=== PATIENT | female | born 1990 ===

== ENCOUNTER 2017-03-13 12:41 | Emergency (ER) | payer OTHER ==
[2017-03-13 12:41] VITALS: BMI 22.2
[2017-03-13 12:58] VITALS: BP 115/82; PULSE 78; RESP 19; TEMP 98.6; O2SAT 100
--- NOTE | 2017-03-13 13:16 | ED PDOC ---
Arrival/HPI <Zaki Sagastume - Last Filed: 03/13/17 14:31> <ViktoriaVictorino - Last Filed: 03/13/17 14:37> - General Chief Complaint: Back Pain Time Seen by Provider: 03/13/17 12:49 - History of Present Illness Narrative History of Present Illness (Text): 03/13/17 13:13 This patient is a 27yo F w/ no PMhx, previous 2 C-Sections, who is coming into the hospital for intense cervical and lumbar back pain. 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 States she has taken nothing for the pain. States the pain shoots down both of her arms from her neck , and she is unable to flex her neck down without extreme pain. Pain also shoots down lumbar spine bilaterally to the knees, not to the feet. Is able to ambulate and carry out daily activities (ie job) but with significant discomfort. She denies any saddle parasthesia, loss of control of bladder/ bowels. She denies fevers/chills, GARCIA, CP, SOB, abdominal pain, n/V/D, dysuria/ freq/urg, or lower extremity swelling. PMD: Dr. Marisela Rosales Allergies: PCN Surgeries: C-Sections FamHx: Denies Meds: Denies Social: working, denies EtOH, current smoking (former smoker), or illicit drug use (Zaki Sagastume) Past Medical History - Provider Review Nursing Documentation Reviewed: Yes - Travel History Have you recently traveled outside [place] w/in the past 3 mons?: No - Past History Past History: No Previous - Infectious Disease Hx of Infectious Diseases: None - Tetanus Immunization Tetanus Immunization: Unknown - Cardiac Hx Cardiac Disorders: No - Pulmonary Hx Respiratory Disorders: No - Neurological Hx Neurological Disorder: No - HEENT Hx HEENT Disorder: No - Renal Hx Renal Disorder: No - Endocrine/Metabolic Hx Endocrine Disorders: No - Hematological/Oncological Hx Blood Disorders: No - Integumentary Hx Dermatological Disorder: No - Musculoskeletal/Rheumatological Hx Musculoskeletal Disorders: Yes Hx Back Pain: Yes Other/Comment: b/l KNEE PAIN - Gastrointestinal Hx Gastrointestinal Disorders: Yes Hx Gastroesophageal Reflux: Yes - Genitourinary/Gynecological Hx Genitourinary Disorders: No - Psychiatric Hx Psychophysiologic Disorder: No Hx Substance Use: No - Surgical History Hx Appendectomy: Yes - Anesthesia Hx Anesthesia: Yes Hx Anesthesia Reactions: No Hx Malignant Hyperthermia: No - Suicidal Assessment Feels Threatened In Home Enviroment: No <ErnestoNanetteoswaldoZaki - Last Filed: 03/13/17 14:31> Family/Social History - Physician Review Nursing Documentation Reviewed: Yes Family/Social History: No Known Family HX Smoking Status: Current Some Days Smoker Hx Alcohol Use: Yes Frequency of alcohol use: Socially Hx Substance Use: No <Zaki Sagastume - Last Filed: 03/13/17 14:31> Allergies/Home Meds <Zaki Sagastume - Last Filed: 03/13/17 14:31> <Victorino Blum - Last Filed: 03/13/17 14:37> Allergies/Adverse Reactions: Allergies Penicillins Allergy (Verified 03/13/17 12:53) ANAPHYLAXIS Review of Systems - Review of Systems Constitutional: absent: Fatigue, Weight Change Eyes: absent: Vision Changes, Photophobia ENT: absent: Hearing Changes Respiratory: absent: SOB, Cough Cardiovascular: absent: Chest Pain Gastrointestinal: absent: Abdominal Pain, Stool Changes, Constipation, Diarrhea , Nausea, Vomiting, Appetite Changes, Hematochezia Genitourinary Female: absent: Dysuria, Frequency, Hematuria Musculoskeletal: Back Pain, Neck Pain. absent: Joint Swelling, Myalgias Skin: absent: Rash, Pruritis Neurological: absent: Headache, Dizziness Endocrine: absent: Diaphoresis, Polyuria Hemo/Lymphatic: absent: Adenopathy Psychiatric: absent: Anxiety, Depression <Zaki Sagastume - Last Filed: 03/13/17 14:31> Physical Exam Temperature: Afebrile Blood Pressure: Normal Pulse: Regular Respiratory Rate: Normal Appearance: Positive for: Well-Appearing Pain Distress: Mild Mental Status: Positive for: Alert and Oriented X 3 - Systems Exam Head: Present: Atraumatic, Normocephalic Pupils: Present: PERRL Extroacular Muscles: Present: EOMI Conjunctiva: Present: Normal Mouth: Present: Moist Mucous Membranes Neck: Present: Normal Range of Motion, Other (ROM in cervical spine decreased, Spurling + b/l on both sides, intact muscle strength). No: Meningeal Signs Respiratory/Chest: Present: Clear to Auscultation, Good Air Exchange. No: Respiratory Distress Cardiovascular: Present: Regular Rate and Rhythm, Normal S1, S2. No: Murmurs Abdomen: Present: Normal Bowel Sounds. No: Tenderness, Distention Upper Extremity: Present: Normal Inspection, NORMAL PULSES. No: Cyanosis, Edema , Normal ROM (ROM decreased due to pain, intact muscle strength b/l on both sides, good warehouse person strength, intact AIN and PIN), Tenderness, Swelling Neurological: Present: GCS=15, CN II-XII Intact, Speech Normal, Gait Normal Skin: Present: Warm Psychiatric: Present: Alert, Oriented x 3 <Zaki Sagastume - Last Filed: 03/13/17 14:31> Vital Signs Reviewed: Yes <Victorino Blum - Last Filed: 03/13/17 14:37> Vital Signs Temp Pulse Resp BP Pulse Ox 03/13/17 12:56 98.6 F 78 19 115/82 100 Medical Decision Making <Zaki Sagastume - Last Filed: 03/13/17 14:31> <Victorino Blum - Last Filed: 03/13/17 14:37> ED Course and Treatment: 03/13/17 13:18 Preg test done in ER; negative Ordered Cervical, Thoracic and Lumbar X-Rays; no previous imaging on file and has been here for back pain in the past requesting pill instead of toradol; giving 10mg Baclofen and 800mg of Ibuprofen Disposition and reassess 03/13/17 14:15 X-Rays show no signs of fracture, good disc space, lumbar and cervical spine show mild scoliosis, cervical spine flattening consistent with muscle spasm The patient is stable for discharge Dr. Irvin Santiago physiatry; patient given this doctors information for follow up Naproxen 500mg BID, Baclofen 10mg TID, and Tramadol 50mg BID number 10; told to only take tramadol if pain is completely unbearable case discussed with Dr. Blum 03/13/17 14:33 (Zaki Sagastume) 03/13/17 14:36 Patient seen and examined. X-ray as noted are unremarkable. Will d/c on meds as noted. 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 / has examined the patient and agrees with the treatment plan. <Victorino Blum - Last Filed: 03/13/17 14:37> Disposition/Present on Arrival - Present on Arrival Any Indicators Present on Arrival: No History of DVT/PE: No History of Uncontrolled Diabetes: No Urinary Catheter: No History of Decub. Ulcer: No History Surgical Site Infection Following: None - Disposition Have Diagnosis and Disposition been Completed?: Yes Disposition Time: 14:19 Patient Plan: Discharge <Zaki Sagastume - Last Filed: 03/13/17 14:31> <Victorino Blum - Last Filed: 03/13/17 14:37> - Disposition Diagnosis: Muscle spasm Disposition: HOME/ ROUTINE Patient Problems: Current Active Problems Problem Status Onset Muscle spasm Acute Condition: FAIR Additional Instructions: Take the naprosyn and baclofen as prescribed and tramadol if pain is severe and uncontrolled. Follow up with physiatry. Return to the emergency department if any new concerning symptoms. Prescriptions: Baclofen [Lioresal] 10 mg PO TID PRN #30 tab PRN Reason: Muscle Spasm Naproxen 500 mg PO BID PRN #30 tab PRN Reason: Pain, Mild (1-3) traMADol [Ultram] 50 mg PO BID PRN #10 tab PRN Reason: Pain, Moderate (4-7) Referrals: Marisela Rosales MD [Primary Care Provider] - Follow up with primary Job Santiago MD [Staff Provider] - Follow up with primary
--- NOTE | 2017-03-13 14:28 | RAD ---
PROCEDURE: Radiographs of the Lumbar Spine. HISTORY: back pain COMPARISON: No prior. FINDINGS: BONES: Rightward lumbar convexity. No listhesis. No fracture. DISC SPACES: Unremarkable. OTHER FINDINGS: The pelvic surgical clips. Left hemipelvic 2 mm phleboliths. Extensive stool retention IMPRESSION: No fracture or subluxation. Rightward lumbar convexity position on an or scoliosis. Extensive stool retention-.
--- NOTE | 2017-03-13 14:29 | RAD ---
HISTORY: back pain COMPARISON: No prior. FINDINGS: BONES: Reversed S-shaped thoracolumbar scoliosis. No fracture. . No lytic lesions DISC SPACES: Normal. SOFT TISSUES: Normal. OTHER FINDINGS: None. IMPRESSION: Thoracolumbar scoliosis. No fracture or lytic lesion
--- NOTE | 2017-03-13 14:30 | RAD ---
PROCEDURE: Cervical Spine Radiographs. HISTORY: Pain. COMPARISON: None. FINDINGS: BONES: Mild reversed cervical lordosis. No fracture. Dens Intact. DISC SPACES: Normal. SOFT TISSUES: Normal. No prevertebral soft tissue swelling. OTHER FINDINGS: None. IMPRESSION: Mild reversed cervical lordosis
== END 2017-03-13 14:53 | disposition home or self-care (01) ==
LOC: ED 12:41
DX: R25.2 Cramp and spasm (principal)

== ENCOUNTER 2017-05-10 12:50 | Emergency (ER) | payer OTHER ==
[2017-05-10 12:55] VITALS: BMI 22.1
[2017-05-10 13:01] VITALS: TEMP 99.2
[2017-05-10] MEDS ORDERED: Sodium Chloride 0.9% 1,000 ML IV STA (13:18)
[2017-05-10 13:50] LABS: PH,URINE 8.5 (4.7-8.0); URINE APPEARANCE CLEAR (CLEAR); URINE BILIRUBIN NEGATIVE (NEGATIVE); URINE BLOOD TRACE-INTACT (NEGATIVE); URINE COLOR YELLOW (YELLOW); URINE GLUCOSE (UA) NEGATIVE (NEGATIVE); URINE KETONE 15 mg/dL (NEGATIVE); URINE LEUKOCYTE ESTERASE NEGATIVE Leu/uL (NEGATIVE); URINE PROTEIN 30 mg/dL (<30 mg/dL)
--- NOTE | 2017-05-10 14:06 | ED PDOC ---
Arrival/HPI - General Chief Complaint: Abdominal Pain Time Seen by Provider: 05/10/17 13:02 Historian: Patient - History of Present Illness Narrative History of Present Illness (Text): 05/10/17 14:03 27yr old female presents today with abdominal pain, back pain, nausea and vomiting. pt states nausea and vomiting started first last night and then patient developed lower abdominal pain. pt states pain is now worsening and radiating to right flank. denies diarrhea. c/o severe sharp constant pain in entire abdomen and back. denies fever/chills. no other complaints. Time/Duration: Other (1 day) Symptom Onset: Gradual Symptom Course: Worsening Quality: Aching, Stabbing Severity Level: 10 Past Medical History - Provider Review Nursing Documentation Reviewed: Yes - Travel History Have you recently traveled outside [place] w/in the past 3 mons?: No - Past History Past History: No Previous - Infectious Disease Hx of Infectious Diseases: None - Tetanus Immunization Tetanus Immunization: Unknown - Cardiac Hx Cardiac Disorders: No - Pulmonary Hx Respiratory Disorders: No Hx Asthma: Yes - Neurological Hx Neurological Disorder: No - HEENT Hx HEENT Disorder: No - Renal Hx Renal Disorder: No - Endocrine/Metabolic Hx Endocrine Disorders: No - Hematological/Oncological Hx Blood Disorders: No - Integumentary Hx Dermatological Disorder: No - Musculoskeletal/Rheumatological Hx Musculoskeletal Disorders: Yes Hx Back Pain: Yes Other/Comment: b/l KNEE PAIN - Gastrointestinal Hx Gastrointestinal Disorders: Yes Hx Gastroesophageal Reflux: Yes - Genitourinary/Gynecological Hx Genitourinary Disorders: No - Psychiatric Hx Psychophysiologic Disorder: No Hx Substance Use: No - Surgical History Hx Appendectomy: Yes - Anesthesia Hx Anesthesia: Yes Hx Anesthesia Reactions: No Hx Malignant Hyperthermia: No - Suicidal Assessment Feels Threatened In Home Enviroment: No Family/Social History - Physician Review Nursing Documentation Reviewed: Yes Family/Social History: Unknown Family HX Smoking Status: Current Some Days Smoker Hx Alcohol Use: Yes Hx Substance Use: No Allergies/Home Meds Allergies/Adverse Reactions: Allergies Penicillins Allergy (Verified 03/13/17 12:53) ANAPHYLAXIS Home Medications: Home Meds Medication Instructions Recorded Confirmed Albuterol HFA [Ventolin HFA 90 2 inhaler INH PRN PRN 05/10/17 05/10/17 mcg/actuation (8 g)] Review of Systems - Review of Systems Constitutional: absent: Fatigue, Fevers ENT: absent: Sore Throat Respiratory: absent: SOB, Cough Cardiovascular: absent: Chest Pain Gastrointestinal: Abdominal Pain, Nausea, Vomiting. absent: Diarrhea Genitourinary Female: absent: Dysuria, Frequency, Hematuria, Vaginal Bleeding, Vaginal Discharge Musculoskeletal: Back Pain. absent: Arthralgias, Neck Pain Skin: absent: Rash, Pruritis Neurological: absent: Headache, Dizziness Psychiatric: absent: Anxiety, Depression Physical Exam Vital Signs Reviewed: Yes Vital Signs Temp Pulse Resp BP Pulse Ox 05/10/17 19:09 71 18 119/71 100 05/10/17 16:45 75 18 114/79 100 05/10/17 15:29 86 18 116/84 100 05/10/17 14:50 96 H 17 118/80 100 05/10/17 12:51 99.2 F 98 H 18 116/84 99 Temperature: Afebrile Blood Pressure: Normal Pulse: Regular Respiratory Rate: Normal Appearance: Positive for: Well-Appearing, Non-Toxic, Uncomfortable Pain Distress: Mild Mental Status: Positive for: Alert and Oriented X 3 - Systems Exam Head: Present: Atraumatic Mouth: Present: Moist Mucous Membranes Neck: Present: Normal Range of Motion Respiratory/Chest: Present: Clear to Auscultation, Good Air Exchange. No: Respiratory Distress, Accessory Muscle Use Cardiovascular: Present: Tachycardic Abdomen: Present: Tenderness (diffuse abdominal tenderness), Normal Bowel Sounds , Guarding. No: Distention, Peritoneal Signs Back: Present: Normal Inspection, Paraspinal Tenderness (right sided paraspinal tenderness). No: Midline Tenderness Upper Extremity: Present: Normal ROM Lower Extremity: Present: Normal ROM Neurological: Present: GCS=15, Speech Normal Skin: Present: Warm, Dry, Normal Color. No: Rashes Psychiatric: Present: Alert, Oriented x 3 Medical Decision Making ED Course and Treatment: 05/10/17 14:07 Patient is nontoxic well appearing with stable vital signs presenting with severe abdominal pain CBC wnl CMP wnl Lipase wnl Lactate; 1.4 Urinalysis: trace ketones Ultrasound:FINDINGS: UTERUS: Measures 4.2 x 5.8 x 8 cm. Normal in size and appearance. No fibroid or other mass lesion seen. ENDOMETRIUM: Measures 3.0 mm in diameter. No ultrasound findings to suggest gestational sac, fluid, debris, mass or polyp or other pathologic process within the endometrium. CERVIX: No cervical abnormality identified. RIGHT OVARY: Measures 1.7 x 2.6 x 2.9 cm. No solid mass. Normal flow. LEFT OVARY: Measures 2.5 x 2.4 x 3.1 cm. No solid mass. Normal flow. Simple cyst 1.5 x 2.1 cm. FREE FLUID: No significant free fluid noted. OTHER FINDINGS: None. IMPRESSION: Simple cyst left adnexa, otherwise unremarkable study. CAT scanFINDINGS: LOWER THORAX: Unremarkable. LIVER: Unremarkable. No gross lesion or ductal dilatation. GALLBLADDER AND BILE DUCTS: Unremarkable. PANCREAS: Unremarkable. No gross lesion or ductal dilatation. SPLEEN: Unremarkable. ADRENALS: Unremarkable. No mass. KIDNEYS AND URETERS: Unremarkable. No hydronephrosis. No solid mass. VASCULATURE: Unremarkable. No aortic aneurysm. BOWEL: Unremarkable. No obstruction. No gross mural thickening. APPENDIX: Normal appendix. PERITONEUM: Unremarkable. No free fluid. No free air. LYMPH NODES: Unremarkable. No enlarged lymph nodes. BLADDER: Unremarkable. REPRODUCTIVE: 2 centimeter left ovarian cyst.. BONES: No acute fracture. OTHER FINDINGS: None. IMPRESSION: 2 centimeter left ovarian cyst. Patient reassessment: pt feeling better after medications; Discussed all results with patient in depth. advised f/u with pmd, GI and AUDIT MGR within the next 2 days. advised immediate return if symptoms worsen,persist or if new symptoms develop. Patient verbalizes understanding of discharge instructions and need for immediate followup. all aspects of this case were discussed the attending of record. Impression: Abdominal pain, back pain, ovarian cyst Motrin every 6 hours as needed for pain Increase fluids Follow-up the primary care physician within the next 2 days Follow-up with a GI specialist within the next 2 days Return immediately if symptoms worsen persist or if new concerning symptoms develop - Lab Interpretations Lab Results: 05/10/17 13:30 05/10/17 13:30 Lab Results 05/10/17 14:25: pO2 29 L, VBG pH 7.48 H, VBG pCO2 31.0 L, VBG HCO3 23.1, VBG Total CO2 24.1, VBG O2 Sat (Calc) 65.9 H, VBG Base Excess 0.4, VBG Potassium 4.4 , Glucose 94, Lactate 1.4, FiO2 21.0, Sodium 134.0, Chloride 104.0, Venous Blood Potassium 4.4 05/10/17 13:41: Urine Color Yellow, Urine Appearance Clear, Urine pH 8.5, Ur Specific Soldier 1.020, Urine Protein 30 H, Urine Glucose (UA) Negative, Urine Ketones 15 H, Urine Blood Trace-intact H, Urine Nitrate Negative, Urine Bilirubin Negative, Urine Urobilinogen 4.0 H, Ur Leukocyte Esterase Negative, Urine RBC 0 - 2, Urine WBC 0 - 2, Ur Epithelial Cells 4 - 5, Urine Bacteria Small 05/10/17 13:30: WBC 9.5 D, RBC 5.15, Hgb 15.5, Hct 43.8, MCV 85.0, MCH 30.1, MCHC 35.4, RDW 12.7, Plt Count 323, MPV 9.5, Gran % 70.2 H, Lymph % (Auto) 22.2 , [place] % (Auto) 6.0, Eos % (Auto) 1.5, Baso % (Auto) 0.1, Gran # 6.68 H, Lymph # 2.1, [place] # 0.6, Eos # 0.1, Baso # 0.01 05/10/17 13:30: Sodium 140, Potassium 3.5 L, Chloride 102, Carbon Dioxide 22, Anion Gap 20, BUN 16, Creatinine 0.8, Est GFR ( Amer) > 60, Est GFR (Non- Af Amer) > 60, Random Glucose 97, Calcium 9.8, Total Bilirubin 1.4 H, AST 29, ALT 30, Alkaline Phosphatase 76, Total Protein 8.0, Albumin 4.8, Globulin 3.2, Albumin/Globulin Ratio 1.5, Lipase 48 - RAD Interpretation Radiology Orders: 05/10/17 13:37 CHEST PORTABLE [RAD] Stat 05/10/17 13:47 ABD & PELVIS IV CONTRAST ONLY [CT] Stat 05/10/17 17:46 TRANSVAGINAL [US] Stat - Medication Orders Current Medication Orders: Discontinued Medications Sodium Chloride (Sodium Chloride 0.9%) 1,000 mls @ 999 mls/hr IV .Q1H1M STA Stop: 05/10/17 14:18 Last Admin: 05/10/17 14:01 Dose: 999 mls/hr Iohexol (Omnipaque 300 100 Ml) Confirm Administered Dose 100 ml IJ .STK-MED ONE Stop: 05/10/17 14:48 Iohexol (Omnipaque 350 100 Ml) Confirm Administered Dose 350 mg .ROUTE .STK-MED ONE Stop: 05/10/17 14:59 Ketorolac Tromethamine (Toradol) 30 mg IVP STAT STA Stop: 05/10/17 13:38 Last Admin: 05/10/17 13:52 Dose: 30 mg Morphine Sulfate (Morphine) 4 mg IVP STAT STA Stop: 05/10/17 14:57 Last Admin: 05/10/17 15:35 Dose: 4 mg Ondansetron HCl (Zofran Inj) 4 mg IVP STAT STA Stop: 05/10/17 13:38 Last Admin: 05/10/17 13:51 Dose: 4 mg Disposition/Present on Arrival - Present on Arrival Any Indicators Present on Arrival: No History of DVT/PE: No History of Uncontrolled Diabetes: No Urinary Catheter: No History of Decub. Ulcer: No History Surgical Site Infection Following: None - Disposition Have Diagnosis and Disposition been Completed?: Yes Diagnosis: Abdominal pain, Back pain, Ovarian cyst Disposition: HOME/ ROUTINE Disposition Time: 19:35 Patient Plan: Discharge Condition: GOOD Discharge Instructions (ExitCare): Ovarian Cyst (ED), Acute Abdominal Pain (ED) , Back Pain (ED) Additional Instructions: Motrin every 6 hours as needed for pain Increase fluids Follow-up the primary care physician within the next 2 days Follow-up with a GI specialist within the next 2 days Return immediately if symptoms worsen persist or if new concerning symptoms develop Prescriptions: Ibuprofen [Motrin] 600 mg PO Q6H PRN #20 tab PRN Reason: pain/fever reduction Referrals: Marisela Rosales MD [Primary Care Provider] - Follow up with primary Sushant Rojas [Medical Doctor] - Follow up with primary Sameera Walls MD, MD [Medical Doctor] - Follow up with primary Forms: [employer] (Martiniquais)
[2017-05-10 14:11] LABS: BASO # 0.01 K/mm3 (0.0-2.0); BASO % 0.1 % (0.0-3.0); EOS # 0.1 (0.0-0.7); EOS % 1.5 % (1.5-5.0); GRAN # 6.68 (1.4-6.5); GRAN % 70.2 % (50.0-68.0); HEMATOCRIT 43.8 % (36.0-48.0); LYMPH # 2.1 (1.2-3.4); LYMPH % 22.2 % (22.0-35.0); MEAN CORPUSCULAR HEMOGLOBIN 30.1 pg (25.0-35.0); MEAN CORPUSCULAR HGB CONC 35.4 g/dl (31.0-37.0); MEAN PLATELET VOLUME 9.5 fl (7.0-11.0); MONO # 0.6 (0.1-0.6); RED CELL DISTRIBUTION WIDTH 12.7 % (11.5-14.5); WHITE BLOOD COUNT 9.5 10^3/ul (4.5-11.0)
[2017-05-10 14:14] LABS: URINE BACTERIA SMALL (NEG); URINE RBC 0 - 2 /hpf (0-2); URINE WBC 0 - 2 /hpf (0-6)
[2017-05-10 14:21] LABS: ALB/GLOB RATIO 1.5 (1.1-1.8); ALKALINE PHOSPHATASE 76 U/L (38-126); ALT/SGPT 30 U/L (7-56); AST/SGOT 29 U/L (14-36); BILIRUBIN,TOTAL 1.4 mg/dL (0.2-1.3); BLOOD UREA NITROGEN 16 mg/dL (7-21); CALCIUM 9.8 mg/dL (8.4-10.5); CARBON DIOXIDE 22 mmol/L (21-33); CHLORIDE 102 mmol/L (98-107); GFR AFRICAN-AMERICAN > 60; GLUCOSE,RANDOM 97 mg/dL (70-110); LIPASE 48 U/L (23-300); POTASSIUM 3.5 mmol/L (3.6-5.0); SODIUM 140 mmol/L (132-148)
[2017-05-10 14:30] LABS: VENOUS BLOOD GAS BASE EXCESS 0.4 mmol/L (0.0-2.0); VENOUS BLOOD PH 7.48 (7.32-7.43)
[2017-05-10] MEDS ORDERED: Iohexol 300 100 ML IJ ONE (14:47)
[2017-05-10] MEDS ORDERED: Morphine 4 mg/ml ISec IVP STA (14:56)
[2017-05-10] MEDS ORDERED: Iohexol 350 MG/100 ML VIAL ONE (14:58)
[2017-05-10 15:29] VITALS: O2SAT 100
[2017-05-10 15:30] VITALS: RESP 18
--- NOTE | 2017-05-10 16:25 | RAD ---
HISTORY: abd pain COMPARISON: No prior. FINDINGS: LUNGS: No active pulmonary disease. PLEURA: No significant pleural effusion identified, no pneumothorax apparent. CARDIOVASCULAR: Normal. OSSEOUS STRUCTURES: No significant abnormalities. VISUALIZED UPPER ABDOMEN: Normal. OTHER FINDINGS: None. IMPRESSION: No active disease.
--- NOTE | 2017-05-10 17:22 | CT ---
PROCEDURE: CT Abdomen and Pelvis with contrast HISTORY: abd pain COMPARISON: None. TECHNIQUE: Contrast dose: 100 CC OF OMNIPAQUE 350 Radiation dose: Total exam DLP = 276 mGy-cm. This CT exam was performed using one or more of the following dose reduction techniques: Automated exposure control, adjustment of the mA and/or kV according to patient size, and/or use of iterative reconstruction technique. FINDINGS: LOWER THORAX: Unremarkable. LIVER: Unremarkable. No gross lesion or ductal dilatation. GALLBLADDER AND BILE DUCTS: Unremarkable. PANCREAS: Unremarkable. No gross lesion or ductal dilatation. SPLEEN: Unremarkable. ADRENALS: Unremarkable. No mass. KIDNEYS AND URETERS: Unremarkable. No hydronephrosis. No solid mass. VASCULATURE: Unremarkable. No aortic aneurysm. BOWEL: Unremarkable. No obstruction. No gross mural thickening. APPENDIX: Normal appendix. PERITONEUM: Unremarkable. No free fluid. No free air. LYMPH NODES: Unremarkable. No enlarged lymph nodes. BLADDER: Unremarkable. REPRODUCTIVE: 2 centimeter left ovarian cyst.. BONES: No acute fracture. OTHER FINDINGS: None. IMPRESSION: 2 centimeter left ovarian cyst.
--- NOTE | 2017-05-10 18:43 | US ---
HISTORY: Pelvic pain. Currently on Depo-Provera COMPARISON: None available. TECHNIQUE: Transvaginal only. Real -time technique with 2D, duplex and color Doppler FINDINGS: UTERUS: Measures 4.2 x 5.8 x 8 cm. Normal in size and appearance. No fibroid or other mass lesion seen. ENDOMETRIUM: Measures 3.0 mm in diameter. No ultrasound findings to suggest gestational sac, fluid, debris, mass or polyp or other pathologic process within the endometrium. CERVIX: No cervical abnormality identified. RIGHT OVARY: Measures 1.7 x 2.6 x 2.9 cm. No solid mass. Normal flow. LEFT OVARY: Measures 2.5 x 2.4 x 3.1 cm. No solid mass. Normal flow. Simple cyst 1.5 x 2.1 cm. FREE FLUID: No significant free fluid noted. OTHER FINDINGS: None. IMPRESSION: Simple cyst left adnexa, otherwise unremarkable study.
[2017-05-10 19:11] VITALS: BP 119/71; PULSE 71
--- NOTE | 2017-05-11 13:23 | CARD ---
APPROVED REPORT EKG Measurement Heart [id number] <Conclusion> Sinus rhythm with marked sinus arrhythmia Otherwise normal ECG
== END 2017-05-10 19:47 | disposition home or self-care (01) ==
LOC: ED 12:50
DX: N83.202 Unspecified ovarian cyst, left side (principal); M54.9 Dorsalgia, unspecified; R10.9 Unspecified abdominal pain
CPT/HCPCS: 71010; 74177; 76830; 80053; 81001; 82803; 83690; 85025; 93005; 96361; 96374; 96375; 99285; J1885; J2270; J2405; J7040; Q9967

== ENCOUNTER 2017-06-26 11:04 | Emergency (ER) | payer OTHER ==
[2017-06-26 11:10] VITALS: BMI 22.7
[2017-06-26] MEDS ORDERED: Albuterol-Ipratrop 3 mg / 0.5 (3 ml) UD IH STA (11:14)
[2017-06-26 11:15] VITALS: RESP 20; O2SAT 98
--- NOTE | 2017-06-26 11:18 | ED PDOC ---
Arrival/HPI - General Time Seen by Provider: 06/26/17 11:13 Historian: Patient - History of Present Illness Narrative History of Present Illness (Text): 06/26/17 11:14 A 27 year old female, whose past medical history includes asthma, presents to the emergency department complaining of productive cough for the past 5 days. Patient notes fatigue, nasal congestion and post-tussive chest discomfort. She reports a fever of 101 at home yesterday. pt states she has cough with green phelgm. pt c/o hearing rattling sounds with deep inspiration. pt c/o feeling as if she has a bladder infection. Patient denies any nausea, vomiting, abdominal pain, headache, dizziness or any other complaints. Time/Duration: Other (5 days) Symptom Course: Unchanged Quality: Other Context: Home Past Medical History - Provider Review Nursing Documentation Reviewed: Yes - Past History Past History: No Previous - Infectious Disease Hx of Infectious Diseases: None - Tetanus Immunization Tetanus Immunization: Unknown - Cardiac Hx Cardiac Disorders: No - Pulmonary Hx Respiratory Disorders: No Hx Asthma: Yes - Neurological Hx Neurological Disorder: No - HEENT Hx HEENT Disorder: No - Renal Hx Renal Disorder: No - Endocrine/Metabolic Hx Endocrine Disorders: No - Hematological/Oncological Hx Blood Disorders: No - Integumentary Hx Dermatological Disorder: No - Musculoskeletal/Rheumatological Hx Musculoskeletal Disorders: Yes Hx Back Pain: Yes - Gastrointestinal Hx Gastrointestinal Disorders: Yes Hx Gastroesophageal Reflux: Yes - Genitourinary/Gynecological Hx Genitourinary Disorders: No - Psychiatric Hx Psychophysiologic Disorder: No Hx Substance Use: No - Surgical History Hx Appendectomy: Yes - Anesthesia Hx Anesthesia: Yes Hx Anesthesia Reactions: No Hx Malignant Hyperthermia: No - Suicidal Assessment Feels Threatened In Home Enviroment: No Family/Social History - Physician Review Nursing Documentation Reviewed: Yes Family/Social History: No Known Family HX Smoking Status: Current Some Days Smoker Hx Alcohol Use: Yes Hx Substance Use: No Allergies/Home Meds Allergies/Adverse Reactions: Allergies Penicillins Allergy (Verified 03/13/17 12:53) ANAPHYLAXIS Home Medications: Home Meds Medication Instructions Recorded Confirmed RX: Albuterol HFA [Ventolin HFA 90 2 inhaler INH PRN PRN 05/10/17 06/26/17 mcg/actuation (8 g)] Review of Systems - Physician Review All systems were reviewed & negative as marked: Yes - Review of Systems Constitutional: Fatigue, Fevers ENT: Sore Throat, Sinus Congestion Respiratory: Cough, Sputum, Wheezing. absent: SOB Cardiovascular: Chest Pain (post-tussive). absent: Palpitations Gastrointestinal: absent: Abdominal Pain, Constipation, Diarrhea, Nausea, Vomiting, Appetite Changes Genitourinary Female: Dysuria, Frequency. absent: Hematuria Musculoskeletal: absent: Arthralgias, Back Pain, Neck Pain Skin: absent: Rash, Pruritis Neurological: absent: Headache, Dizziness Psychiatric: absent: Anxiety, Depression Physical Exam Vital Signs Reviewed: Yes Vital Signs Temp Pulse Resp BP Pulse Ox 06/26/17 11:25 20 06/26/17 11:05 99 F 95 H 20 131/73 98 Temperature: Afebrile Blood Pressure: Normal Pulse: Regular Respiratory Rate: Normal Appearance: Positive for: Well-Appearing, Non-Toxic, Comfortable Pain Distress: None Mental Status: Positive for: Alert and Oriented X 3 - Systems Exam Head: Present: Atraumatic, Normocephalic Conjunctiva: Present: Normal Ears: Present: Normal, NORMAL TM, Normal Canal. No: Erythema, TM Bulging, TM Perf Mouth: Present: Moist Mucous Membranes, Normal Lips, Normal Tounge. No: Drooling, Trismus Pharnyx: Present: Normal. No: ERYTHEMA, EXUDATE, TONSILS ENLARGED Nose (External): Present: Atraumatic Nose (Internal): Present: Engorged, Clear Mucous, Other (congestion). No: No Active Bleeding, Septal Hematoma Neck: Present: Normal Range of Motion, Trachea Midline. No: Meningeal Signs, Lymphadenopathy Respiratory/Chest: Present: Good Air Exchange, Wheezes (expiratory wheezing bilaterally), Rhonchi. No: Respiratory Distress, Accessory Muscle Use Cardiovascular: Present: Regular Rate and Rhythm, Normal S1, S2. No: Murmurs Abdomen: Present: Normal Bowel Sounds. No: Tenderness, Distention, Peritoneal Signs Back: Present: Normal Inspection. No: CVA Tenderness Upper Extremity: Present: Normal Inspection. No: Cyanosis, Edema Lower Extremity: Present: Normal Inspection. No: Edema Neurological: Present: GCS=15, Speech Normal, Gait Normal Skin: Present: Warm, Dry, Normal Color. No: Rashes Psychiatric: Present: Alert, Oriented x 3 Medical Decision Making ED Course and Treatment: 06/26/17 11:14 A 27 year old female with a productive cough and congestion Plan: -- Chest xray: no infiltrate. reviewed by dr. Arceo. -- Duoneb -- ekg; normal sinus rhythm at 82 bpm normal axis normal intervals no ST elevations -- ua: wnl -- Reassess and disposition Progress Notes: 06/26/17 12:42 pt reassessment; lungs CTA bilaterally. No wheezing rales or rhonchi. Patient with a history of asthma will start the patient on prednisone Zithromax given by mouth. discussed all results in depth with patient. Patient was advised to follow up with primary care physician within the next 2 days. Patient was advised to use albuterol nebulizer as needed. Patient was advised take medications as prescribed and return immediately if symptoms worsen persist or if new concerning symptoms develop Patient verbalizes understanding of discharge instructions and need for immediate followup. all aspects of this case were discussed the attending of record. impression; cough, sore throat, asthma exacerbation Motrin every 6 hours as needed for pain/fever reduction Zithromax daily 4 days Prednisone daily 4 days Increase fluids Follow-up with primary care physician within the next 2 days Return immediately if symptoms worsen persist or if new concerning symptoms develop - Lab Interpretations Lab Results: Lab Results 06/26/17 11:40: Urine Color Yellow, Urine Appearance Sl cloudy, Urine pH 8.5, Ur Specific Pollard 1.015, Urine Protein Negative, Urine Glucose (UA) Negative, Urine Ketones Negative, Urine Blood Negative, Urine Nitrate Negative, Urine Bilirubin Negative, Urine Urobilinogen 0.2, Ur Leukocyte Esterase Negative - RAD Interpretation Radiology Orders: 06/26/17 11:14 CHEST TWO VIEWS (PA/LAT) [RAD] Stat - Medication Orders Current Medication Orders: Azithromycin (Zithromax) 500 mg PO STAT STA PRN Reason: Protocol Stop: 06/26/17 12:39 Prednisone (Prednisone Tab) 60 mg PO STAT ONE Stop: 06/26/17 12:39 Discontinued Medications Albuterol/Ipratropium (Duoneb 3 Mg/0.5 Mg (3 Ml) Ud) 3 ml IH STAT STA Stop: 06/26/17 11:15 Last Admin: 06/26/17 11:24 Dose: 3 ml - Scribe Statement The provider has reviewed the documentation as recorded by the Jermaineibdaron Rahman Provider Scribe Attestation: All medical record entries made by the Scribe were at my direction and personally dictated by me. I have reviewed the chart and agree that the record accurately reflects my personal performance of the history, physical exam, medical decision making, and the department course for this patient. I have also personally directed, reviewed, and agree with the discharge instructions and disposition. Disposition/Present on Arrival - Present on Arrival Any Indicators Present on Arrival: No History of DVT/PE: No History of Uncontrolled Diabetes: No Urinary Catheter: No History of Decub. Ulcer: No History Surgical Site Infection Following: None - Disposition Have Diagnosis and Disposition been Completed?: Yes Diagnosis: Asthma exacerbation, Cough, Sore throat Disposition: HOME/ ROUTINE Disposition Time: 12:45 Patient Plan: Discharge Condition: GOOD Discharge Instructions (ExitCare): Asthma (ED), Acute Cough (ED) Additional Instructions: Motrin every 6 hours as needed for pain/fever reduction Zithromax daily 4 days Prednisone daily 4 days Use nebulizer 3 times daily as needed for cough Increase fluids Follow-up with primary care physician within the next 2 days Return immediately if symptoms worsen persist or if new concerning symptoms develop Prescriptions: RX: Albuterol HFA [Ventolin HFA 90 mcg/actuation (8 g)] 2 puff IH [id number] PRN # 1 inhaler PRN Reason: Cough RX: Albuterol 0.083% [Albuterol 0.083% Inhal Luba (2.5 mg/3 ml) UD] 1 vial IH TID PRN #1 packet PRN Reason: Cough Azithromycin [Zithromax] 250 mg PO DAILY #4 tab Ibuprofen [Motrin] 600 mg PO Q6H PRN #20 tab PRN Reason: pain/fever reduction RX: predniSONE [predniSONE Tab] 3 tab PO DAILY #12 tab Referrals: Genaro Travis MD [Staff Provider] - Follow up with primary [facility] [place] - Follow up with primary Forms: WORK NOTE
[2017-06-26 11:54] LABS: PH,URINE 8.5 (4.7-8.0); URINE BILIRUBIN NEGATIVE (NEGATIVE); URINE BLOOD NEGATIVE (NEGATIVE); URINE GLUCOSE (UA) NEGATIVE (NEGATIVE); URINE KETONE NEGATIVE (NEGATIVE); URINE LEUKOCYTE ESTERASE NEGATIVE Leu/uL (NEGATIVE); URINE PROTEIN NEGATIVE mg/dL (<30 mg/dL); URINE UROBILINOGEN 0.2 E.U./dL (<1 E.U./dL)
[2017-06-26 11:55] LABS: URINE APPEARANCE SL CLOUDY (CLEAR); URINE COLOR YELLOW (YELLOW)
[2017-06-26 12:56] VITALS: BP 126/76; PULSE 88; TEMP 98.9
--- NOTE | 2017-06-26 13:06 | RAD ---
HISTORY: cough/fever COMPARISON: No prior. TECHNIQUE: Chest PA and lateral FINDINGS: LUNGS: No active pulmonary disease. PLEURA: No significant pleural effusion identified. No pneumothorax apparent. CARDIOVASCULAR: Normal. OSSEOUS STRUCTURES: No significant abnormalities. VISUALIZED UPPER ABDOMEN: Normal. OTHER FINDINGS: None. IMPRESSION: No active disease.
--- NOTE | 2017-06-26 16:54 | CARD ---
APPROVED REPORT EKG Measurement Heart [id number] ID [id number] <Conclusion> Normal sinus rhythm Lateral ST elevation, Consider early repolarization pattern Borderline ECG
== END 2017-06-26 12:57 | disposition home or self-care (01) ==
LOC: ED 11:04
DX: J45.901 Unspecified asthma with (acute) exacerbation (principal); J02.9 Acute pharyngitis, unspecified; F17.200 Nicotine dependence, unspecified, uncomplicated; Z88.0 Allergy status to penicillin

== ENCOUNTER 2018-02-24 20:44 | Emergency (ER) | payer OTHER ==
[2018-02-24 20:44] VITALS: BMI 22.7
[2018-02-24] MEDS ORDERED: TDAP Vaccine 0.5 mL Syr IM ONE (21:33)
[2018-02-24] MEDS ORDERED: Oxycodone/Acetaminophen 5/325 mg Tab PO STA ×2 (21:34→22:19)
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
[2018-02-24] MEDS ORDERED: Silver Sulfadiazine 1% Cream (25 gm) TP STA (21:59)
[2018-02-24 22:39] VITALS: BP 125/63; PULSE 85; RESP 19; TEMP 98.6; O2SAT 99
== END 2018-02-24 22:37 | disposition home or self-care (01) ==
LOC: ED 20:44
DX: T24.211A Burn of second degree of right thigh, initial encounter (principal); T24.201A Burn of second degree of unspecified site of right lower limb, except ankle and foot, initial encounter; T24.611A Corrosion of second degree of right thigh, initial encounter; T24.601A Corrosion of second degree of unspecified site of right lower limb, except ankle and foot, initial encounter; T65.891A Toxic effect of other specified substances, accidental (unintentional), initial encounter; Y92.89 Other specified places as the place of occurrence of the external cause; Y99.0 Civilian activity done for income or pay; Z23 Encounter for immunization

== ENCOUNTER 2018-05-08 11:00 | Emergency (ER) | payer OTHER ==
[2018-05-08 11:16] VITALS: BMI 21.2
[2018-05-08] MEDS ORDERED: Sodium Chloride 0.9% 1,000 ML IV STA (11:55)
[2018-05-08 11:57] VITALS: PULSE 75; RESP 18; TEMP 98.5
[2018-05-08 12:24] LABS: ALB/GLOB RATIO 1.5 (1.1-1.8); ALBUMIN 4.5 g/dL (3.0-4.8); ALT/SGPT 22 U/L (7-56); AST/SGOT 22 U/L (14-36); BLOOD UREA NITROGEN 20 mg/dL (7-21); CALCIUM 9.3 mg/dL (8.4-10.5); GFR NON-AFRICAN AMERICAN > 60
[2018-05-08 12:50] LABS: BASO # 0.03 K/mm3 (0.0-2.0); BASO % 0.5 % (0.0-3.0); EOS # 0.2 (0.0-0.7); EOS % 2.5 % (1.5-5.0); GRAN # 2.91 (1.4-6.5); GRAN % 45.4 % (50.0-68.0); HEMOGLOBIN 13.4 g/dL (12.0-16.0); LYMPH # 2.8 (1.2-3.4); MEAN CELL VOLUME 87.3 fl (80.0-105.0); MEAN CORPUSCULAR HEMOGLOBIN 29.9 pg (25.0-35.0); MEAN CORPUSCULAR HGB CONC 34.3 g/dl (31.0-37.0); MEAN PLATELET VOLUME 9.7 fl (7.0-11.0); MONO # 0.5 (0.1-0.6); MONO % 7.6 % (1.0-6.0); RBC 4.48 10^6/uL (3.5-6.1); RED CELL DISTRIBUTION WIDTH 12.8 % (11.5-14.5); WHITE BLOOD COUNT 6.4 10^3/ul (4.5-11.0)
[2018-05-08 12:52] LABS: URINE BILIRUBIN NEGATIVE (NEGATIVE); URINE BLOOD NEGATIVE (NEGATIVE); URINE GLUCOSE (UA) NEGATIVE (NEGATIVE); URINE LEUKOCYTE ESTERASE NEGATIVE Leu/uL (NEGATIVE); URINE PROTEIN TRACE mg/dL (<30 mg/dL)
--- NOTE | 2018-05-08 12:54 | ED PDOC ---
Arrival/HPI - General Historian: Patient - History of Present Illness Time/Duration: < week (3 days) Symptom Course: Worsening <Dianna Whitfield - Last Filed: 05/08/18 14:03> <Troy Rush - Last Filed: 05/08/18 14:06> - General Chief Complaint: Abdominal Pain Time Seen by Provider: 05/08/18 11:18 - History of Present Illness Narrative History of Present Illness (Text): 05/08/18 13:44 28 y/o A1 female with PMH of GERD and asthma who presents to the ED c/o nausea and vomiting x 3 days. Pt has been unable to keep much food or water down , vomiting approx 3 times daily. Pt also having intermittent mild suprapubic cramping that began with the vomiting. Associated symptoms include dry mouth, constipation, fatigue, urinary frequency, and breast tenderness. Pt suspects she might be , unsure of home test results. LMP 04/09/18. Pt seen at [facility] 3 weeks ago for vomiting and diagnosed with low blood sugar. Currently uses tobacco and marijuana intermittently. Denies fever, chills, diarrhea, dysuria, hematuria, vaginal bleeding, vaginal discharge, SOB, rhinorrhea, sore throat, headache, dizziness, syncope. (Dianna Whitfield) Past Medical History - Provider Review Nursing Documentation Reviewed: Yes - Past History Past History: No Previous - Infectious Disease Hx of Infectious Diseases: None - Tetanus Immunization Tetanus Immunization: Unknown - Reproductive Currently : Unknown - Cardiac Hx Cardiac Disorders: No - Pulmonary Hx Respiratory Disorders: Yes Hx Asthma: Yes - Neurological Hx Neurological Disorder: No - HEENT Hx HEENT Disorder: No - Renal Hx Renal Disorder: No - Endocrine/Metabolic Hx Endocrine Disorders: No - Hematological/Oncological Hx Blood Disorders: No - Integumentary Hx Dermatological Disorder: No - Musculoskeletal/Rheumatological Hx Musculoskeletal Disorders: Yes Hx Back Pain: Yes - Gastrointestinal Hx Gastrointestinal Disorders: Yes Hx Gastroesophageal Reflux: Yes - Genitourinary/Gynecological Hx Genitourinary Disorders: No Other/Comment: spontaneous , 2014 - Psychiatric Hx Psychophysiologic Disorder: No Hx Substance Use: Yes - Surgical History Hx Appendectomy: Yes - Anesthesia Hx Anesthesia: Yes Hx Anesthesia Reactions: No Hx Malignant Hyperthermia: No - Suicidal Assessment Feels Threatened In Home Enviroment: No <Dianna Whitfield - Last Filed: 05/08/18 14:03> Family/Social History - Physician Review Nursing Documentation Reviewed: Yes Family/Social History: No Known Family HX Smoking Status: Current Some Days Smoker Hx Alcohol Use: Yes Hx Substance Use: Yes Substance used: marijuana Route: Smoking/Inhalation <Dianna Whitfield - Last Filed: 05/08/18 14:03> Allergies/Home Meds <Dianna Whitfield - Last Filed: 05/08/18 14:03> <Troy Rush - Last Filed: 05/08/18 14:06> Allergies/Adverse Reactions: Allergies Penicillins Allergy (Verified 05/08/18 11:15) ANAPHYLAXIS Home Medications: Home Meds Medication Instructions Recorded Confirmed No Known Home Med 05/08/18 05/08/18 Review of Systems - Physician Review All systems were reviewed & negative as marked: Yes - Review of Systems Constitutional: Normal. absent: Fevers ENT: Normal. absent: Sore Throat, Rhinorrhea, Sinus Congestion Respiratory: Normal. absent: SOB Cardiovascular: Normal Gastrointestinal: Abdominal Pain (Crampy, suprapubic), Constipation, Nausea, Vomiting, Anorexia. absent: Diarrhea, Hematochezia Genitourinary Female: Frequency. absent: Dysuria, Hematuria, Vaginal Bleeding, Vaginal Discharge Musculoskeletal: Normal Skin: Normal Neurological: Normal Hemo/Lymphatic: absent: Adenopathy <Dianna Whitfield - Last Filed: 05/08/18 14:03> Physical Exam Vital Signs Reviewed: Yes Temperature: Afebrile Blood Pressure: Normal Pulse: Regular Respiratory Rate: Normal Appearance: Positive for: Well-Appearing, Non-Toxic, Comfortable Pain Distress: None Mental Status: Positive for: Alert and Oriented X 3 - Systems Exam Conjunctiva: Present: Normal Ears: Present: Normal Mouth: Present: Dry, Normal Tounge, Normal Teeth. No: Normal Lips (Dry, chapped ) Pharnyx: Present: Normal. No: ERYTHEMA, EXUDATE, TONSILS ENLARGED, Peritonsilar Swelling Neck: Present: Normal Range of Motion Respiratory/Chest: Present: Clear to Auscultation, Good Air Exchange. No: Respiratory Distress, Accessory Muscle Use Cardiovascular: Present: Regular Rate and Rhythm, Normal S1, S2, Peripheal Pulses Present. No: Murmurs Abdomen: Present: Tenderness (Mild tenderness, suprapubic), Normal Bowel Sounds. No: Distention, Peritoneal Signs Upper Extremity: Present: NORMAL PULSES, Capillary Refill < 2s Lower Extremity: Present: NORMAL PULSES, Capillary Refill < 2 s Neurological: Present: Gait Normal Skin: Present: Warm, Dry, Normal Color. No: Rashes Lymphatic: No: Cervical Adenopathy Psychiatric: Present: Alert, Oriented x 3, Normal Insight, Normal Concentration <Dianna Whitfield - Last Filed: 05/08/18 14:03> Vital Signs Temp Pulse Resp BP Pulse Ox 05/08/18 11:01 98.5 F 75 18 112/79 100 Medical Decision Making Re-evaluation Time: 13:00 Reassessment Condition: Improved - Lab Interpretations I have reviewed the lab results: Yes <Dianna Whitfield - Last Filed: 05/08/18 14:03> <Troy Rush - Last Filed: 05/08/18 14:06> ED Course and Treatment: 05/08/18 12:00 28 y/o A1 female with PMH of GERD and asthma who presents to the ED c/o nausea and vomiting x 3 days. Associated crampy suprapubic pain. Denies fevers, chills, diarrhea, SOB, rhinorrhea, sore throat, headache. Physical exam shows mild suprapubic tenderness and dry mouth/lips. Urine test negative but has history of false negative tests. Will order CBC, CMP, UA with culture, beta-hcg quant Will give fluids Case discussed with Dr. Rush, who agrees with plan. 05/08/18 13:00 Pt reassessed. Pt states she is feeling better with fluids. Denies nausea. CBC: wnl CMP: wnl UA: trace protein attributed to dehydration, otherwise wnl beta-hcg quant: slightly elevated, possible early 05/08/18 13:27 Pt informed of lab results. Positive beta-hcg quantitative result discussed. Pt advised that this could be early . 05/08/18 13:36 Impression: Dehydration Plan: Pt advised to stop all alcohol, tobacco, and drug use and to begin taking OTC gummy vitamins. Pt will followup with OBGYN in two days to repeat bloodwork. Lab results printed for pt to take home. Pt will followup with PMD as needed Told to return for high fevers, intractable vomiting, severe abdominal pain, syncope Pt understands and agrees with plan, feels comfortable with discharge home. (Dianna Whitfield) - Lab Interpretations Lab Results: 05/08/18 12:00 05/08/18 12:00 Lab Results 05/08/18 12:00: Beta HCG, Quant 11.27 H 05/08/18 12:00: Sodium 139, Potassium 4.0, Chloride 106, Carbon Dioxide 25, Anion Gap 13, BUN 20, Creatinine 0.9, Est GFR ( Amer) > 60, Est GFR (Non- Af Amer) > 60, Random Glucose 86, Calcium 9.3, Total Bilirubin 0.7, AST 22, ALT 22, Alkaline Phosphatase 43, Total Protein 7.3, Albumin 4.5, Globulin 2.9, Albumin/Globulin Ratio 1.5 05/08/18 12:00: Urine Color Yellow, Urine Appearance Clear, Urine pH 7.0, Ur Specific [place] 1.015, Urine Protein Trace H, Urine Glucose (UA) Negative, Urine Ketones Negative, Urine Blood Negative, Urine Nitrate Negative, Urine Bilirubin Negative, Urine Urobilinogen 1.0 H, Ur Leukocyte Esterase Negative, Urine RBC 0 - 2, Urine WBC 1 - 3, Ur Epithelial Cells 10 - 12, Amorphous Sediment Few, Urine Bacteria Many, Urine Other Uyeast 05/08/18 12:00: WBC 6.4 D, RBC 4.48, Hgb 13.4 D, Hct 39.1, MCV 87.3, MCH 29.9 , MCHC 34.3, RDW 12.8, Plt Count 291, MPV 9.7, Gran % 45.4 L, Lymph % (Auto) 44.0 H, [place] % (Auto) 7.6 H, Eos % (Auto) 2.5, Baso % (Auto) 0.5, Gran # 2.91, Lymph # (Auto) 2.8, [place] # (Auto) 0.5, Eos # (Auto) 0.2, Baso # (Auto) 0.03 - Medication Orders Current Medication Orders: Discontinued Medications Sodium Chloride (Sodium Chloride 0.9%) 1,000 mls @ 999 mls/hr IV .Q1H1M STA Stop: 05/08/18 12:55 Last Admin: 05/08/18 12:07 Dose: 999 mls/hr eMAR Start Stop Document 05/08/18 12:07 ELISEO (Rec: 05/08/18 12:08 LA [id number]) Intravenous Solution Start Date 05/08/18 Start Time 12:07 End Date 05/08/18 End time 13:08 Total Infusion Time 61 - PA / CANVAS BASTER / Resident Statement / has examined the patient and agrees with the treatment plan. <Troy Rush - Last Filed: 05/08/18 14:06> Disposition/Present on Arrival - Present on Arrival Any Indicators Present on Arrival: No History of DVT/PE: No History of Uncontrolled Diabetes: No Urinary Catheter: No History of Decub. Ulcer: No History Surgical Site Infection Following: None - Disposition Have Diagnosis and Disposition been Completed?: Yes Disposition Time: 13:00 <Dianna Whitfield - Last Filed: 05/08/18 14:03> <Troy Rush - Last Filed: 05/08/18 14:06> - Disposition Diagnosis: Dehydration Disposition: HOME/ ROUTINE Patient Problems: Current Active Problems Problem Status Onset Dehydration Acute Condition: IMPROVED Discharge Instructions (ExitCare): Dehydration, Adult (DC) Additional Instructions: Increase clear fluids in order to stay hydrated. Stop all tobacco, alcohol, and drug use. Begin taking OTC gummies Followup with OBGYN in 2 days to repeat bloodwork. Followup with PMD as needed. Return for intractable vomiting, heavy vaginal bleeding, severe abdominal pain Referrals: Neo An MD [Staff Provider] - Follow up with primary Tameka Garcia MD [Medical Doctor] - Follow up with primary [facility] [Outside] - Follow up with primary Forms: [employer] (Swiss)
[2018-05-08 12:56] LABS: URINE APPEARANCE CLEAR (CLEAR); URINE COLOR YELLOW (YELLOW)
[2018-05-08 13:06] LABS: URINE AMORPHOUS SEDIMENT FEW; URINE BACTERIA MANY (NEG); URINE RBC 0 - 2 /hpf (0-2)
[2018-05-08 14:29] VITALS: BP 115/81; O2SAT 99
== END 2018-05-08 14:05 | disposition home or self-care (01) ==
LOC: ED 11:00
DX: E86.0 Dehydration (principal); K21.9 Gastro-esophageal reflux disease without esophagitis
CPT/HCPCS: 80053; 81001; 82948; 84702; 85025; 87086; 96360; 99284; J7030

== ENCOUNTER 2018-05-18 21:38 | Emergency (ER) | payer OTHER ==
[2018-05-18 21:39] VITALS: BMI 21.2
[2018-05-18 22:20] VITALS: RESP 18
[2018-05-18] MEDS ORDERED: Albuterol-Ipratrop 3 mg / 0.5 (3 ml) UD IH PRN (22:30)
--- NOTE | 2018-05-18 22:46 | ED PDOC ---
Arrival/HPI - General Chief Complaint: Female Genitourinary Time Seen by Provider: 05/18/18 21:52 Historian: Patient - History of Present Illness Narrative History of Present Illness (Text): 05/18/18 22:20 28 year old female, whose past medical history includes GERD and asthma and 1 demise, presents to the emergency department complaining of vaginal bleeding with cramping. Patient last menstrual period was the end of March. Patient was here last week for stomach virus, but told it was early with mild elevation of Beta HCG. Patient denies any fever, chills, chest pain, shortness of breath, nausea, vomiting, diarrhea, urinary symptoms, back pain, neck pain, headache, dizziness, or any other complaints. PMD: Dr. Rosales Symptom Onset: Gradual Symptom Course: Unchanged Activities at Onset: Light Context: Home Past Medical History - Provider Review Nursing Documentation Reviewed: Yes - Past History Past History: No Previous - Infectious Disease Hx of Infectious Diseases: None - Tetanus Immunization Tetanus Immunization: Unknown - Cardiac Hx Cardiac Disorders: No - Pulmonary Hx Respiratory Disorders: Yes Hx Asthma: Yes - Neurological Hx Neurological Disorder: No - HEENT Hx HEENT Disorder: No - Renal Hx Renal Disorder: No - Endocrine/Metabolic Hx Endocrine Disorders: No - Hematological/Oncological Hx Blood Disorders: No - Integumentary Hx Dermatological Disorder: No - Musculoskeletal/Rheumatological Hx Musculoskeletal Disorders: Yes Hx Back Pain: Yes - Gastrointestinal Hx Gastrointestinal Disorders: Yes Hx Gastroesophageal Reflux: Yes - Genitourinary/Gynecological Hx Genitourinary Disorders: No Other/Comment: spontaneous , 2014 - Psychiatric Hx Psychophysiologic Disorder: No Hx Substance Use: Yes - Surgical History Hx Appendectomy: Yes - Anesthesia Hx Anesthesia: Yes Hx Anesthesia Reactions: No Hx Malignant Hyperthermia: No - Suicidal Assessment Feels Threatened In Home Enviroment: No Family/Social History - Physician Review Nursing Documentation Reviewed: Yes Family/Social History: No Known Family HX Smoking Status: Current Some Days Smoker Hx Alcohol Use: Yes Hx Substance Use: Yes Substance used: marijuana Allergies/Home Meds Allergies/Adverse Reactions: Allergies Penicillins Allergy (Verified 05/18/18 22:21) ANAPHYLAXIS Home Medications: Home Meds Medication Instructions Recorded Confirmed No Known Home Med 05/08/18 05/18/18 Review of Systems - Physician Review All systems were reviewed & negative as marked: Yes - Review of Systems Constitutional: absent: Fevers, Other (Chills) Respiratory: absent: SOB Cardiovascular: absent: Chest Pain Gastrointestinal: Abdominal Pain (cramping). absent: Diarrhea, Nausea, Vomiting Genitourinary Female: Vaginal Bleeding. absent: Dysuria, Frequency, Hematuria Musculoskeletal: absent: Back Pain, Neck Pain Neurological: absent: Headache, Dizziness Physical Exam Vital Signs Reviewed: Yes Vital Signs Temp Pulse Resp BP Pulse Ox 05/18/18 22:20 98.6 F 63 18 101/71 100 Temperature: Afebrile Blood Pressure: Normal Pulse: Regular Respiratory Rate: Normal Appearance: Positive for: Well-Appearing, Non-Toxic, Comfortable Pain Distress: None Mental Status: Positive for: Alert and Oriented X 3 - Systems Exam Head: Present: Atraumatic, Normocephalic Pupils: Present: PERRL Extroacular Muscles: Present: EOMI Conjunctiva: Present: Normal Mouth: Present: Moist Mucous Membranes Neck: Present: Normal Range of Motion Respiratory/Chest: Present: Clear to Auscultation, Good Air Exchange. No: Respiratory Distress, Accessory Muscle Use Cardiovascular: Present: Regular Rate and Rhythm, Normal S1, S2. No: Murmurs Abdomen: No: Tenderness, Distention, Peritoneal Signs Genitourinary/Pelvic Exam: Present: Vaginal Bleeding (Scanty amount of blood to the vaginal introitus), Cervical os Closed. No: Cervical Motion Tendernes Back: Present: Normal Inspection Upper Extremity: Present: Normal Inspection. No: Cyanosis, Edema Lower Extremity: Present: Normal Inspection. No: Edema Neurological: Present: GCS=15, CN II-XII Intact, Speech Normal Skin: Present: Warm, Dry, Normal Color. No: Rashes Psychiatric: Present: Alert, Oriented x 3, Normal Insight, Normal Concentration Medical Decision Making ED Course and Treatment: 05/18/18 22:20 Impression: 28 year old female presents complaining of vaginal bleeding with cramping. Plan: -- labs -- Transvaginal US -- Reassess and disposition Prior Visits: Notes and results from previous visits were reviewed. Patient was last seen in the emergency department on 05/08/18 presents complaining of nausea and vomiting for the past 3 days. Patient was discharged. Progress Notes: EXAM: US , Transvaginal Dictated and Authenticated by: Ishmael Orourke MD 05/18/2018 11:59 PM IMPRESSION: 1. No intrauterine gestational sac is seen. Findings may reflect recent spontaneous AB or very early intrauterine gestation. Ectopic is not excluded although no adnexal abnormality is seen. Serial beta hCG levels may be of benefit. 2. Otherwise negative pelvic echogram. 05/19/18 01:21 On re-evaluation, patient feels better here in the Emergency room The results were discussed with the patient at great length. Results revealed either early or spontaneous . Patient scheduled to see WAREHOUSE ATTENDANT tomorrow and to follow up as instructed. Of course if any heavy bleeding or pain occurs, patient was instructed to return to Emergency department. - Lab Interpretations Lab Results: 05/18/18 22:45 05/18/18 22:45 Lab Results 05/18/18 23:53: Blood Type Confirm O POSITIVE 05/18/18 23:26: Blood Type O POSITIVE, Antibody Screen Negative, BBK History Checked No verified bt 05/18/18 22:45: Beta HCG, Quant 35.25 H 05/18/18 22:45: WBC 8.6 D, RBC 4.47, Hgb 13.4, Hct 39.1, MCV 87.5, MCH 30.0, MCHC 34.3, RDW 12.8, Plt Count 317, MPV 9.7 05/18/18 22:45: Sodium 140, Potassium 3.5 L, Chloride 104, Carbon Dioxide 27, Anion Gap 12, BUN 15, Creatinine 0.9, Est GFR ( Amer) > 60, Est GFR (Non- Af Amer) > 60, Random Glucose 94, Calcium 9.7, Total Bilirubin 0.2, AST 21, ALT 21, Alkaline Phosphatase 56, Total Protein 7.6, Albumin 4.6, Globulin 3.1, Albumin/Globulin Ratio 1.5 I have reviewed the lab results: Yes - RAD Interpretation Radiology Orders: 05/18/18 22:29 OB TRANSVAGINAL [US] Stat - Scribe Statement The provider has reviewed the documentation as recorded by the Scottie Zhang Provider Scribe Attestation: All medical record entries made by the Scribe were at my direction and personally dictated by me. I have reviewed the chart and agree that the record accurately reflects my personal performance of the history, physical exam, medical decision making, and the department course for this patient. I have also personally directed, reviewed, and agree with the discharge instructions and disposition. Disposition/Present on Arrival - Present on Arrival Any Indicators Present on Arrival: No History of DVT/PE: No History of Uncontrolled Diabetes: No Urinary Catheter: No History of Decub. Ulcer: No History Surgical Site Infection Following: None - Disposition Have Diagnosis and Disposition been Completed?: Yes Diagnosis: Vaginal bleeding affecting early Disposition: HOME/ ROUTINE Disposition Time: 01:19 Patient Plan: Discharge Patient Problems: Current Active Problems Problem Status Onset Vaginal bleeding affecting early Acute Condition: GOOD Discharge Instructions (ExitCare): Bleeding With (DC) Additional Instructions: Rest/no strenuous physical activity/follow up with your head of advertising tommorow as scheduled Referrals: Marisela Rosales MD [Primary Care Provider] - Follow up with primary Forms: [employer] (Kyrgyz)
[2018-05-18 23:00] LABS: HEMOGLOBIN 13.4 g/dL (12.0-16.0); MEAN CELL VOLUME 87.5 fl (80.0-105.0); MEAN CORPUSCULAR HGB CONC 34.3 g/dl (31.0-37.0); MEAN PLATELET VOLUME 9.7 fl (7.0-11.0); RBC 4.47 10^6/uL (3.5-6.1); RED CELL DISTRIBUTION WIDTH 12.8 % (11.5-14.5); WHITE BLOOD COUNT 8.6 10^3/ul (4.5-11.0)
[2018-05-18 23:11] LABS: ALB/GLOB RATIO 1.5 (1.1-1.8); ALBUMIN 4.6 g/dL (3.0-4.8); ALT/SGPT 21 U/L (7-56); AST/SGOT 21 U/L (14-36); BLOOD UREA NITROGEN 15 mg/dL (7-21); CALCIUM 9.7 mg/dL (8.4-10.5); GFR NON-AFRICAN AMERICAN > 60
[2018-05-19 01:29] VITALS: BP 113/64; PULSE 74; TEMP 98; O2SAT 98
--- NOTE | 2018-05-19 08:34 | US ---
Date of service: 05/18/2018 HISTORY: Pain. LMP 04/09/2018. COMPARISON: None available. TECHNIQUE: Transvaginal only. Real -time technique with 2D, duplex and color Doppler FINDINGS: UTERUS: Measures 4.8 x 6.3 x 9.1 cm. Normal in size and appearance. No fibroid or other mass lesion seen. ENDOMETRIUM: Measures 11.3 mm in diameter. No ultrasound findings to suggest gestational sac, fluid, debris, mass or polyp or other pathologic process within the endometrium. CERVIX: No cervical abnormality identified. RIGHT OVARY: Measures 1.5 x 1.7 x 2.9 cm. No solid mass. Normal flow. LEFT OVARY: Measures 2.1 x 3.1 x 2.3 cm. No solid mass. Normal flow. FREE FLUID: No significant free fluid noted. OTHER FINDINGS: None. IMPRESSION: Unremarkable pelvic ultrasound. No visible products of conception either intrauterine or ectopic. Concordant results (preliminary interpretation) provided by [facility]. Procedure Completed: 23:20 Preliminary ([facility]) Report: Dictated and Authenticated: 23:59 Final Interpretation: 08:32. May 19, 2018.
== END 2018-05-19 01:19 | disposition home or self-care (01) ==
LOC: ED 21:38
DX: O20.9 Hemorrhage in early pregnancy, unspecified (principal)

== ENCOUNTER 2018-06-21 13:45 | Emergency (ER) | payer OTHER ==
[2018-06-21 13:46] VITALS: BMI 21.2
[2018-06-21 13:52] VITALS: TEMP 98.7
[2018-06-21] MEDS ORDERED: Sodium Chloride 0.9% 1,000 ML IV STA (14:05)
--- NOTE | 2018-06-21 14:12 | ED PDOC ---
Arrival/HPI - General Chief Complaint: Flu-like Symptoms Time Seen by Provider: 06/21/18 13:58 Historian: Patient - History of Present Illness Narrative History of Present Illness (Text): 06/21/18 14:09 28 y/o female, no significant pmh, penicillin allergy, c/o cough/fatigue and bodyache x 2 days. Pt. stated that she has dry cough, associated with fatigue and bodyache x 2 days, no fever, no recent traveling, no night sweat, no dizziness, no change in vision, no numbness or tingling, no rash, no other medical or psychological complaints. Past Medical History - Provider Review Nursing Documentation Reviewed: Yes - Past History Past History: No Previous - Infectious Disease Hx of Infectious Diseases: None - Tetanus Immunization Tetanus Immunization: Unknown - Cardiac Hx Cardiac Disorders: No - Pulmonary Hx Respiratory Disorders: Yes Hx Asthma: Yes - Neurological Hx Neurological Disorder: No - HEENT Hx HEENT Disorder: No - Renal Hx Renal Disorder: No - Endocrine/Metabolic Hx Endocrine Disorders: No - Hematological/Oncological Hx Blood Disorders: No - Integumentary Hx Dermatological Disorder: No - Musculoskeletal/Rheumatological Hx Musculoskeletal Disorders: Yes Hx Back Pain: Yes - Gastrointestinal Hx Gastrointestinal Disorders: Yes Hx Gastroesophageal Reflux: Yes - Genitourinary/Gynecological Hx Genitourinary Disorders: Yes Other/Comment: MISCARRIAGE 05/18 - Psychiatric Hx Psychophysiologic Disorder: No Hx Substance Use: Yes - Surgical History Hx Appendectomy: Yes - Anesthesia Hx Anesthesia: Yes Hx Anesthesia Reactions: No Hx Malignant Hyperthermia: No - Suicidal Assessment Feels Threatened In Home Enviroment: No Family/Social History - Physician Review Nursing Documentation Reviewed: Yes Family/Social History: Unknown Family HX Smoking Status: Current Some Days Smoker Hx Alcohol Use: Yes Hx Substance Use: Yes Substance used: marijuana Allergies/Home Meds Allergies/Adverse Reactions: Allergies Penicillins Allergy (Verified 06/21/18 13:48) ANAPHYLAXIS Review of Systems - Review of Systems Constitutional: Fatigue. absent: Fevers Eyes: absent: Vision Changes ENT: absent: Hearing Changes Respiratory: Cough. absent: SOB, Sputum Cardiovascular: absent: Chest Pain Gastrointestinal: absent: Abdominal Pain, Nausea, Vomiting Musculoskeletal: Myalgias. absent: Arthralgias, Back Pain Skin: absent: Rash, Pruritis Neurological: absent: Headache, Dizziness Psychiatric: absent: Anxiety, Depression, Suicidal Ideation Physical Exam Vital Signs Reviewed: Yes Vital Signs Temp Pulse Resp BP Pulse Ox 06/21/18 13:48 98.7 F 79 16 132/84 98 Temperature: Afebrile Blood Pressure: Normal Pulse: Regular Respiratory Rate: Normal Appearance: Positive for: Well-Appearing, Non-Toxic, Comfortable Pain Distress: Mild Mental Status: Positive for: Alert and Oriented X 3 - Systems Exam Head: Present: Atraumatic, Normocephalic Pupils: Present: PERRL Extroacular Muscles: Present: EOMI Conjunctiva: Present: Normal Mouth: Present: Moist Mucous Membranes Nose (External): Present: Atraumatic. No: Abrasion, Contusion, Laceration, Lesions Nose (Internal): Present: Normal Inspection, No Active Bleeding. No: Rhinorrhea, Septal Hematoma, Epistaxis Neck: Present: Normal Range of Motion, Trachea Midline. No: Meningeal Signs, MIDLINE TENDERNESS, Paraspinal Tenderness, Lymphadenopathy Respiratory/Chest: Present: Clear to Auscultation, Good Air Exchange. No: Respiratory Distress, Accessory Muscle Use Cardiovascular: Present: Regular Rate and Rhythm, Normal S1, S2. No: Murmurs Abdomen: No: Tenderness, Distention, Peritoneal Signs, Rebound, Guarding Back: Present: Normal Inspection Upper Extremity: Present: Normal Inspection, Normal ROM, Neurovascularly Intact, Capillary Refill < 2s. No: Cyanosis, Edema, Deformity Lower Extremity: Present: Normal Inspection, Normal ROM, Capillary Refill < 2 s. No: Edema, Deformity Neurological: Present: GCS=15, CN II-XII Intact, Speech Normal, Motor Func Gr ossly Intact, Gait Normal, Memory Normal Skin: Present: Warm, Dry, Normal Color. No: Rashes Psychiatric: Present: Alert, Oriented x 3, Normal Insight, Normal Concentration Medical Decision Making ED Course and Treatment: 06/21/18 14:13 -Labs/rapid flu -IVF/pepcid -Tylenol -Observe and reassess 06/21/18 16:39 -Urine hcg is negative -CXR No active pulmonary disease. -Labs show no acute findings except potassium 3.3 (potassium chloride 20meq po ordered). -Rapid flu is negative, clinical suspicious is high -Pt. feels much better after tylenol and fluid -All labs/radiology results discussed with the patient. -Discharge home with tamiflu, tylenol, robitussin dm, stay hydrated, bed rest, follow up with your own pmd within 2 days, return to the ER for any new or worsening signs or symptoms. - RAD Interpretation Radiology Orders: 06/21/18 14:07 CHEST PORTABLE [RAD] Stat Date of service: 06/21/2018 HISTORY: medical clearance COMPARISON: 06/26/2027 FINDINGS: LUNGS: The lungs are well inflated and clear. PLEURA: No pleural effusions or pneumothorax. CARDIOVASCULAR: The heart is normal in size. No aortic atherosclerotic calcification present. OSSEOUS STRUCTURES: Within normal limits for the patient's age. VISUALIZED UPPER ABDOMEN: Normal. OTHER FINDINGS: None. IMPRESSION: No active pulmonary disease. 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 Disposition/Present on Arrival - Present on Arrival Any Indicators Present on Arrival: No History of DVT/PE: No History of Uncontrolled Diabetes: No Urinary Catheter: No History of Decub. Ulcer: No History Surgical Site Infection Following: None - Disposition Have Diagnosis and Disposition been Completed?: Yes Diagnosis: Flu-like symptoms Disposition: HOME/ ROUTINE Disposition Time: 16:40 Patient Plan: Discharge Condition: IMPROVED Additional Instructions: -Discharge home with tamiflu, tylenol, robitussin dm, stay hydrated, bed rest, follow up with your own pmd within 2 days, return to the ER for any new or worsening signs or symptoms. Prescriptions: Acetaminophen [Tylenol 325mg tab] 2 tab PO QID PRN #30 tab PRN Reason: Other guaiFENesin/Dextromethorphan [Q-Tussin Dm 10 MG/5 Ml-100 MG/5 Ml 120 Ml] 10 ml PO QID PRN #200 ml PRN Reason: Other Oseltamivir Phosphate [Tamiflu] 75 mg PO BID #10 capsule Referrals: [facility] [place] - Follow up with primary Forms: [employer] (Irish), WORK NOTE
--- NOTE | 2018-06-21 15:05 | RAD ---
Date of service: 06/21/2018 HISTORY: medical clearance COMPARISON: 06/26/2027 FINDINGS: LUNGS: The lungs are well inflated and clear. PLEURA: No pleural effusions or pneumothorax. CARDIOVASCULAR: The heart is normal in size. No aortic atherosclerotic calcification present. OSSEOUS STRUCTURES: Within normal limits for the patient's age. VISUALIZED UPPER ABDOMEN: Normal. OTHER FINDINGS: None. IMPRESSION: No active pulmonary disease.
[2018-06-21 15:06] LABS: BASO # 0.04 K/mm3 (0.0-2.0); BASO % 0.5 % (0.0-3.0); EOS # 0.3 (0.0-0.7); EOS % 4.1 % (1.5-5.0); GRAN # 3.43 (1.4-6.5); GRAN % 45.8 % (50.0-68.0); HEMOGLOBIN 14.4 g/dL (12.0-16.0); LYMPH # 3.3 (1.2-3.4); LYMPH % 43.6 % (22.0-35.0); MEAN CELL VOLUME 88.1 fl (80.0-105.0); MEAN CORPUSCULAR HEMOGLOBIN 30.2 pg (25.0-35.0); MEAN CORPUSCULAR HGB CONC 34.3 g/dl (31.0-37.0); MONO # 0.5 (0.1-0.6); RBC 4.77 10^6/uL (3.5-6.1); RED CELL DISTRIBUTION WIDTH 12.3 % (11.5-14.5); WHITE BLOOD COUNT 7.5 10^3/uL (4.5-11.0)
[2018-06-21 15:08] VITALS: O2SAT 99
[2018-06-21 15:23] LABS: ALB/GLOB RATIO 1.4 (1.1-1.8); ALBUMIN 4.6 g/dL (3.0-4.8); ALT/SGPT 20 U/L (7-56); AST/SGOT 22 U/L (14-36); BLOOD UREA NITROGEN 12 mg/dL (7-21); CALCIUM 9.5 mg/dL (8.4-10.5); GFR NON-AFRICAN AMERICAN > 60
[2018-06-21] MEDS ORDERED: Potassium Chloride 20 mEq ER Tab PO STA (15:24)
[2018-06-21 17:05] VITALS: BP 126/86; PULSE 80; RESP 18
== END 2018-06-21 17:06 | disposition home or self-care (01) ==
LOC: ED 13:45
DX: J11.1 Influenza due to unidentified influenza virus with other respiratory manifestations (principal); F17.210 Nicotine dependence, cigarettes, uncomplicated
CPT/HCPCS: 71045; 80053; 85025; 87804; 96360; 99285; J7030

== ENCOUNTER 2018-11-01 09:59 | Emergency (ER) | payer SELFPAY, OTHER | END 2018-11-01 12:00 | disposition home or self-care (01) | LOC: ED 09:59 ==